=== PATIENT | female | born 1945 | race Caucasian/White ===

== ENCOUNTER 2017-09-10 12:42 | Day surgery (SDC) | payer MEDICARE ==
[2017-09-10] VITALS (300 sets, daily range): BP systolic 115–150; BP diastolic 75–101; PULSE 113–120; TEMP 97.7–98.8; O2SAT 82–100
[~2017-09-10] VITALS: Ht 152.4 cm; Wt 97.1 kg
[2017-09-10 13:43] LABS: HEMATOCRIT 40.8 % (37.0-47.0); HEMOGLOBIN 12.8 g/dl (12.5-16.0); MEAN CELL VOLUME 101 fl (80.0-100.0); MEAN CORPUSCULAR HEMOGLOBIN 32 pg (27.0-31.0); MEAN CORPUSCULAR HGB CONC 31 g/dl (33.0-37.0); MEAN PLATELET VOLUME 8.5 fl (7.4-10.4); PLATELET COUNT 290 K/mm3 (130-400); RED BLOOD COUNT 4.06 M/mm3 (4.10-5.30)
[2017-09-10] MEDS ORDERED: NITROSTAT0.4 MG/TAB SL (13:43)
[2017-09-10] MEDS ORDERED: GLUCOTROL 5M5 MG/TAB PO (13:43)
[2017-09-10] MEDS ORDERED: COZAAR 50MG50 MG/TAB PO (13:44)
[2017-09-10] MEDS ORDERED: LASIX 80MG TABL80 MG PO (13:44)
[2017-09-10] MEDS ORDERED: NORVASC 5MG5 MG/TAB PO (13:46)
[2017-09-10] MEDS ORDERED: K-TAB20 PO (13:47)
[2017-09-10] MEDS ORDERED: NORCO 325 MG-7.1 TAB PO (13:47)
[2017-09-10] MEDS ORDERED: MELATONIN5 M1 SL (13:48)
[2017-09-10] MEDS ORDERED: CALCIUM-MAGNES1 EAC1 PO (13:49)
[2017-09-10] MEDS ORDERED: TYLENOL 500MG500 MG PO (13:49)
[2017-09-10] MEDS ORDERED: THE MEDICINE S200 M2 PO (13:53)
[2017-09-10] MEDS ORDERED: MECLIZINE PO (13:55)
[2017-09-10] MEDS ORDERED: ASPIRIN 32325 MG/TAB PO (13:56)
[2017-09-10] MEDS ORDERED: VITAMIN B COMPL1 SGL PO (13:56)
[2017-09-10 13:57] LABS: CALCIUM 9.6 mg/dL (8.4-10.2); CREATININE, serum 1.06 mg/dL (0.52-1.25); POTASSIUM 4.4 mmol/L (3.4-5.0)
[2017-09-10] MEDS ORDERED: OYSTER SHELL CA1 TA6 PO (13:57)
[2017-09-10] MEDS ORDERED: GLUCOSAMIN 500 PO (13:57)
[2017-09-10] MEDS ORDERED: NATURE'S BLEND100 M2 PO (13:58)
[2017-09-10] MEDS ORDERED: B-121000 MCG PO (13:58)
[2017-09-10] MEDS ORDERED: VITAMIN C500 MG PO (13:59)
[2017-09-10] MEDS ORDERED: NATURAL E400 IU PO (13:59)
[2017-09-10 14:19] LABS: INR 1.1 (0.8-3.0); PROTHROMBIN TIME 12.6 SECONDS (9.7-12.8)
[2017-09-10] MEDS ORDERED: GLUCOPHAGE500 MG/TAB PO (14:55)
[2017-09-10 20:37] LABS: BASO # 0.1 (0.0-0.2); BASO % 1.3 % (0.0-2.0); EOS # 0.2 (0.0-0.7); GRAN # 2.9 (1.4-6.5); GRAN % 48.8 % (42.2-75.2); HEMATOCRIT 39.5 % (37.0-47.0); HEMOGLOBIN 12.4 g/dl (12.5-16.0); LYMPH # 2.1 (1.2-3.4); LYMPH % 34.3 % (20.0-51.0); MEAN CELL VOLUME 101 fl (80.0-100.0); MEAN CORPUSCULAR HEMOGLOBIN 32 pg (27.0-31.0); MEAN CORPUSCULAR HGB CONC 31 g/dl (33.0-37.0); MEAN PLATELET VOLUME 8.4 fl (7.4-10.4); MONO # 0.7 (0.1-0.6); MONO % 12.4 % (1.7-9.3); PLATELET COUNT 272 K/mm3 (130-400); RED BLOOD COUNT 3.92 M/mm3 (4.10-5.30); REDCELL DISTRIBUTION WIDTH-CV 14.2 % (11.5-14.5)
[2017-09-10 20:50] LABS: CALCIUM 9.4 mg/dL (8.4-10.2); CREATININE, serum 1.06 mg/dL (0.52-1.25); POTASSIUM 5.2 mmol/L (3.4-5.0)
[2017-09-11] VITALS (130 sets, daily range): BP systolic 123–149; BP diastolic 81–94; PULSE 115–130; TEMP 97.1–98; O2SAT 89–99
[2017-09-11 05:43] LABS: CALCIUM 9.1 mg/dL (8.4-10.2); CREATININE, serum 1.06 mg/dL (0.52-1.25); POTASSIUM 4.3 mmol/L (3.4-5.0)
[2017-09-11] MEDS ORDERED: PLAVIX 75MG TAB75 MG PO (08:15)
[2017-09-11] MEDS ORDERED: ASPI325T6 PO (08:16)
== END 2017-09-11 10:55 | disposition home or self-care (01) ==
LOC: COL.CAR 12:42 → ICU 17:52 → COL.CAR 09-11 10:55
PROVIDERS: Internal Medicine Interventional Cardiology
DX: I25.110 Atherosclerotic heart disease of native coronary artery with unstable angina pectoris (principal); I10 Essential (primary) hypertension; E11.9 Type 2 diabetes mellitus without complications; Z79.84 Long term (current) use of oral hypoglycemic drugs; E66.9 Obesity, unspecified; E78.5 Hyperlipidemia, unspecified; Z88.2 Allergy status to sulfonamides; Z88.8 Allergy status to other drugs, medicaments and biological substances
CPT/HCPCS: OP; C9600; C9601; J0583; Q9967

== ENCOUNTER 2017-09-22 13:07 | Inpatient (IN) | payer MEDICARE ==
[~2017-09-22] VITALS: Ht 152.4 cm; Wt 95.6 kg
[~2017-09-22 13:07] MED LIST: ANTIVERT 25MG25 MG PO; ASPI325T6 PO; ASPIRIN 32325 MG/TAB PO; B-121000 MCG PO; CALCIUM-MAGNES1 EAC1 PO; COZAAR 50MG50 MG/TAB PO; GLUCOPHAGE500 MG/TAB PO; GLUCOSAMIN 500 PO; GLUCOTROL 5M5 MG/TAB PO; K-TAB20 PO; LASIX 80MG TABL80 MG PO; MELATONIN5 M1 SL; NATURAL E400 IU PO; NATURE'S BLEND100 M2 PO; NITROSTAT0.4 MG/TAB SL; NORCO 325 MG-7.1 TAB PO; NORVASC 5MG5 MG/TAB PO; OYSTER SHELL CA1 TA6 PO; PLAVIX 75MG TAB75 MG PO; THE MEDICINE S200 M2 PO; TYLENOL 500MG500 MG PO; VITAMIN B COMPL1 SGL PO; VITAMIN C500 MG PO
[2017-09-22] MEDS ORDERED: ASPIRIN 81M81 MG/TA2 PO (18:06)
[2017-09-22 18:19] VITALS: BP 122/73; PULSE 116; TEMP 98
[2017-09-22 18:45] LABS: BASO # 0.1 (0.0-0.2); BASO % 1.6 % (0.0-2.0); EOS # 0.2 (0.0-0.7); GRAN # 4.3 (1.4-6.5); HEMATOCRIT 42.4 % (37.0-47.0); HEMOGLOBIN 13.6 g/dl (12.5-16.0); LYMPH # 2.1 (1.2-3.4); LYMPH % 27.6 % (20.0-51.0); MEAN CELL VOLUME 100 fl (80.0-100.0); MEAN CORPUSCULAR HEMOGLOBIN 32 pg (27.0-31.0); MEAN CORPUSCULAR HGB CONC 32 g/dl (33.0-37.0); MEAN PLATELET VOLUME 8.6 fl (7.4-10.4); MONO # 0.9 (0.1-0.6); MONO % 11.5 % (1.7-9.3); PLATELET COUNT 327 K/mm3 (130-400); RED BLOOD COUNT 4.24 M/mm3 (4.10-5.30); REDCELL DISTRIBUTION WIDTH-CV 14.4 % (11.5-14.5)
[2017-09-22 18:57] LABS: CALCIUM 9.9 mg/dL (8.4-10.2); CREATININE, serum 1.09 mg/dL (0.52-1.25); POTASSIUM 5.5 mmol/L (3.4-5.0)
[2017-09-22 19:15] LABS: TROPONIN-I 0.066 ng/mL (0.000-0.034)
[2017-09-22 19:26] VITALS: BP 110/75; PULSE 117; TEMP 98.9
[2017-09-22] MEDS ORDERED: NORCO 325 MG-7.1 TAB PO (19:34)
[2017-09-22 23:20] VITALS: BP 104/64; PULSE 113; TEMP 98.5
[2017-09-23] VITALS (577 sets, daily range): BP systolic 110–132; BP diastolic 57–86; PULSE 97–119; TEMP 97.6–98.5; O2SAT 86–98
[2017-09-23 07:54] LABS: BASO # 0.1 (0.0-0.2); BASO % 1.8 % (0.0-2.0); EOS # 0.2 (0.0-0.7); EOS % 2.7 % (0-4.0); GRAN # 2.5 (1.4-6.5); GRAN % 39.8 % (42.2-75.2); HEMATOCRIT 40.9 % (37.0-47.0); HEMOGLOBIN 12.8 g/dl (12.5-16.0); LYMPH # 2.5 (1.2-3.4); LYMPH % 40.6 % (20.0-51.0); MEAN CELL VOLUME 101 fl (80.0-100.0); MEAN CORPUSCULAR HEMOGLOBIN 32 pg (27.0-31.0); MEAN CORPUSCULAR HGB CONC 31 g/dl (33.0-37.0); MEAN PLATELET VOLUME 8.5 fl (7.4-10.4); MONO # 0.9 (0.1-0.6); MONO % 14.8 % (1.7-9.3); PLATELET COUNT 286 K/mm3 (130-400); RED BLOOD COUNT 4.05 M/mm3 (4.10-5.30); REDCELL DISTRIBUTION WIDTH-CV 14.5 % (11.5-14.5)
[2017-09-23 08:03] LABS: PROTHROMBIN TIME 12.1 SECONDS (9.7-12.8)
[2017-09-23 08:10] LABS: CALCIUM 9.4 mg/dL (8.4-10.2); CREATININE, serum 0.97 mg/dL (0.52-1.25); POTASSIUM 3.9 mmol/L (3.4-5.0)
[2017-09-23 08:28] LABS: TROPONIN-I 0.039 ng/mL (0.000-0.034)
[2017-09-23 08:36] LABS: PARTIAL THROMBOPLASTIN TIME 34.6 SECONDS (26.0-37.0)
[2017-09-24] VITALS (516 sets, daily range): BP systolic 134–146; BP diastolic 88–109; PULSE 108–110; TEMP 97–97.8; O2SAT 86–99
[2017-09-24] MEDS ORDERED: ELIQUIS 5MG PO (11:13)
[2017-09-24] MEDS ORDERED: PLAVIX 75MG TAB75 MG PO (11:13)
[2017-09-24] MEDS ORDERED: DUTOPROL 12.5 M1 TE2 PO (11:14)
== END 2017-09-24 13:13 | disposition home or self-care (01) | DRG 315 ==
LOC: MEDICAL 13:07 → ICU 09-23 14:20 → MEDICAL 09-23 17:00 → ICU 09-24 13:13
PROVIDERS: Internal Medicine Interventional Cardiology
PROC: 5A2204Z Restoration of Cardiac Rhythm, Single (ICD-10-PCS; principal; 2017-09-23)
DX: I42.0 Dilated cardiomyopathy (principal); I25.110 Atherosclerotic heart disease of native coronary artery with unstable angina pectoris; I48.92 Unspecified atrial flutter; I48.0 Paroxysmal atrial fibrillation; Z87.891 Personal history of nicotine dependence
CPT/HCPCS: J0282; J1650; J2250; J3010; J7060

== ENCOUNTER 2017-11-09 12:17 | Day surgery (SDC) | payer MEDICARE ==
[~2017-11-09] VITALS: Ht 152.4 cm; Wt 94.9 kg
[2017-11-09] VITALS (308 sets, daily range): BP systolic 127–159; BP diastolic 69–89; PULSE 61–77; TEMP 97.1–98.8; O2SAT 70–100
[~2017-11-09 12:17] MED LIST changes: +ASPIRIN 81M81 MG/TA2 PO; +DUTOPROL 12.5 M1 TE2 PO; +ELIQUIS 5MG PO
[2017-11-09 13:09] LABS: HEMATOCRIT 42.6 % (37.0-47.0); HEMOGLOBIN 13.9 g/dl (12.5-16.0); MEAN CELL VOLUME 96 fl (80.0-100.0); MEAN CORPUSCULAR HEMOGLOBIN 31 pg (27.0-31.0); MEAN CORPUSCULAR HGB CONC 33 g/dl (33.0-37.0); MEAN PLATELET VOLUME 8.6 fl (7.4-10.4); PLATELET COUNT 246 K/mm3 (130-400); RED BLOOD COUNT 4.45 M/mm3 (4.10-5.30); REDCELL DISTRIBUTION WIDTH-CV 14.9 % (11.5-14.5)
[2017-11-09 13:16] LABS: PROTHROMBIN TIME 11.6 SECONDS (9.7-12.8)
[2017-11-09 13:23] LABS: CALCIUM 9.4 mg/dL (8.4-10.2); CREATININE, serum 1.09 mg/dL (0.52-1.25); POTASSIUM 4.8 mmol/L (3.4-5.0)
[2017-11-09] MEDS ORDERED: CORDARONE200 MG/TAB PO (13:29)
[2017-11-10] VITALS (504 sets, daily range): BP systolic 117–162; BP diastolic 74–87; PULSE 70–72; TEMP 97.2–98.5; O2SAT 48–100
[2017-11-10 05:42] LABS: BASO # 0.1 (0.0-0.2); EOS # 0.1 (0.0-0.7); EOS % 2.1 % (0-4.0); GRAN # 2.9 (1.4-6.5); HEMATOCRIT 42.2 % (37.0-47.0); HEMOGLOBIN 13.3 g/dl (12.5-16.0); LYMPH # 2.2 (1.2-3.4); LYMPH % 36.7 % (20.0-51.0); MEAN CELL VOLUME 98 fl (80.0-100.0); MEAN CORPUSCULAR HEMOGLOBIN 31 pg (27.0-31.0); MEAN CORPUSCULAR HGB CONC 32 g/dl (33.0-37.0); MEAN PLATELET VOLUME 8.5 fl (7.4-10.4); MONO # 0.8 (0.1-0.6); PLATELET COUNT 240 K/mm3 (130-400); RED BLOOD COUNT 4.29 M/mm3 (4.10-5.30)
[2017-11-10 05:53] LABS: CALCIUM 8.8 mg/dL (8.4-10.2); CREATININE, serum 1.19 mg/dL (0.52-1.25); POTASSIUM 4.1 mmol/L (3.4-5.0)
== END 2017-11-10 12:39 | disposition home or self-care (01) ==
LOC: COL.CAR 12:17 → ICU 15:15 → COL.CAR 11-10 12:39
PROVIDERS: Internal Medicine Interventional Cardiology
DX: I25.10 Atherosclerotic heart disease of native coronary artery without angina pectoris (principal); I48.0 Paroxysmal atrial fibrillation; I83.93 Asymptomatic varicose veins of bilateral lower extremities; I25.5 Ischemic cardiomyopathy; Z95.811 Presence of heart assist device; Z79.02 Long term (current) use of antithrombotics/antiplatelets; Z79.82 Long term (current) use of aspirin; Z88.5 Allergy status to narcotic agent; E11.9 Type 2 diabetes mellitus without complications; Z79.84 Long term (current) use of oral hypoglycemic drugs; E78.5 Hyperlipidemia, unspecified; Z95.5 Presence of coronary angioplasty implant and graft; I34.0 Nonrheumatic mitral (valve) insufficiency
CPT/HCPCS: OP; C9600; J0583; J1940; J2250; J3010; Q9967

== ENCOUNTER 2018-05-17 10:38 | Inpatient (IN) | payer MEDICARE ==
[~2018-05-17] VITALS: Ht 154.9 cm; Wt 97.2 kg
[~2018-05-17 10:38] MED LIST changes: +CORDARONE200 MG/TAB PO
[2018-06-27] VITALS (10 sets, daily range): BP systolic 97–154; BP diastolic 69–98; PULSE 58–80; TEMP 97.6–98.2
[2018-06-27] MEDS ORDERED: LEXAPRO20 MG PO (08:57)
[2018-06-27] MEDS ORDERED: GLUCOTROL 5M5 MG/TAB PO (08:58)
[2018-06-27] MEDS ORDERED: PROTONIX 40MG T40 MG PO (08:59)
[2018-06-27] MEDS ORDERED: GLUCOPHAGE500 MG/TAB PO (08:59)
[2018-06-27] MEDS ORDERED: VITAMIN E 400 U4001 PO (09:00)
[2018-06-27] MEDS ORDERED: K-DUR20 MEQ PO (09:00)
[2018-06-28 01:03] VITALS: BP 128/63; PULSE 88; TEMP 98.3
[2018-06-28 04:50] VITALS: BP 134/75; PULSE 86; TEMP 98.6
[2018-06-28] MEDS ORDERED: CELEBREX 200MG200 MG PO (06:37)
[2018-06-28] MEDS ORDERED: NORCO 325 MG-7.1 TAB PO (06:37)
[2018-06-28] MEDS ORDERED: ULTRAM 50MG TAB50 MG PO (06:38)
[2018-06-28 06:43] LABS: HEMOGLOBIN 11.3 g/dl (12.5-16.0)
[2018-06-28 08:00] VITALS: BP 151/72; PULSE 100; TEMP 97.8
[2018-06-28 11:22] VITALS: BP 148/76; PULSE 100; TEMP 99.3
[2018-06-28 20:44] VITALS: BP 156/72; PULSE 107; TEMP 98.5
[2018-06-29 01:35] VITALS: BP 131/72; PULSE 110; TEMP 98.5
[2018-06-29 06:01] VITALS: BP 146/77; PULSE 102; TEMP 97.7
[2018-06-29 07:31] LABS: HEMOGLOBIN 10.4 g/dl (12.5-16.0)
[2018-06-29 07:37] VITALS: BP 138/70; PULSE 100; TEMP 98.3
[2018-06-29 11:32] VITALS: BP 137/69; PULSE 115; TEMP 98.9
[2018-06-29] MEDS ORDERED: GLUCOPHAGE500 MG/TAB PO ×2 (14:05)
[2018-06-29 16:31] VITALS: BP 148/72; PULSE 99; TEMP 98.2
[2018-06-29 21:14] VITALS: BP 123/61; PULSE 99; TEMP 98.6
[2018-06-30 02:13] VITALS: BP 120/69; PULSE 84; TEMP 98.6
[2018-06-30 08:09] VITALS: BP 148/83; PULSE 102; TEMP 98.3
[2018-06-30 09:09] VITALS: BP 148/83; PULSE 102; TEMP 98.3
== END 2018-06-30 10:00 | disposition swing bed (61) | DRG 470 ==
LOC: JCC 06-27 07:30
PROVIDERS: Orthopaedic Surgery; Physician Assistant
PROC: 0SRD0J9 Replacement of Left Knee Joint with Synthetic Substitute, Cemented, Open Approach (ICD-10-PCS; principal; 2018-06-27 09:30)
DX: M17.12 Unilateral primary osteoarthritis, left knee (principal); I48.91 Unspecified atrial fibrillation; E11.9 Type 2 diabetes mellitus without complications; I25.10 Atherosclerotic heart disease of native coronary artery without angina pectoris; I11.0 Hypertensive heart disease with heart failure; I50.9 Heart failure, unspecified; Z87.891 Personal history of nicotine dependence; Z95.5 Presence of coronary angioplasty implant and graft
CPT/HCPCS: A4314; C1713; C1776; J0690; J1885; J2250; J2405; J2704; J2795; J3010; J7030

== ENCOUNTER → 2018-07-25 | Outpatient (CLI) | payer MEDICARE ==
[~2018-07-25] MED LIST changes: +CELEBREX 200MG200 MG PO; +K-DUR20 MEQ PO; +LEXAPRO20 MG PO; +PROTONIX 40MG T40 MG PO; +ULTRAM 50MG TAB50 MG PO; +VITAMIN E 400 U4001 PO
== END ==
LOC: COL.VAS 13:30
DX: I82.812 Embolism and thrombosis of superficial veins of left lower extremity (principal); Z98.890 Other specified postprocedural states; Z96.652 Presence of left artificial knee joint

== ENCOUNTER 2023-04-09 06:18 | Day surgery (SDC) | payer MEDICARE ==
[~2023-04-09] VITALS: Ht 154.9 cm; Wt 93.6 kg
[~2023-04-09 06:18] MED LIST changes: +ALDACTONE 25MG25 M1 PO; +AMOXICILLIN 8751 TAB PO; +BETAPACE AF80 MG/TA1 PO; -CALCIUM-MAGNES1 EAC1 PO; +CHOLESTYRAMINE PO; +COLACE 100100 MG/CAP PO; +CYMBALTA 30MG30 MG PO; +FENTANYL 50MCG TD; +GLUCOPHAGE1000 MG PO; +HEADACHE RELIE1 EACH PO; +IMDUR 60MG60 MG/TAB PO; +JARDIANCE10; +LASIX 20MG TABL20 MG PO; +MELATONIN ER10 MG PO; -MELATONIN5 M1 SL; +MULTI VITAMINS1 TAB PO; +NEURIVA PLUS B1 EACH PO; +OYSCO 500 + D 51 TAB PO; +SENNA-LAX8.6 MG PO
[2023-04-09 07:31] VITALS: BP 133/59; PULSE 93; TEMP 98.3
[2023-04-09 09:27] VITALS: BP 91/47; PULSE 84; TEMP 98.2
[2023-04-09 09:45] VITALS: BP 104/58; PULSE 80
[2023-04-09 10:00] VITALS: BP 110/60; PULSE 70
[2023-04-09 10:15] VITALS: BP 117/65; PULSE 68
[2023-04-09] MEDS ORDERED: CEPHALEXIN500 M1 PO (10:31)
--- NOTE | 2023-04-09 17:21 | NUR ---
3240-1136: PT TO RECOVERY BAY 6 FROM OR S/P HARDWARE REMOVAL FROM LEFT FOREARM SLEEPING, PLACED ON MONITOR, VSS ON 6L MASK RECEIVED REPORT AND ASSUMED CARE OF PT FROM YANNA AND GOSIA FAMILY AT BEDSIDE PT A&O AT 0950 - PLACED ON RA PROVIDED FOOD/FLUIDS, TOLERATING WELL T/C TO PA FOR DC ORDERS AT 1010 PT HAS REMAINED A&O, NAD, VSS ON RA, TOLERATING PO, IS WITHOUT SIGNIFICANT COMPLAINT, WITH STEADY GAIT TO BR TO VOID BY END OF STAY IV D/C'D. D/C INSTRUCTIONS, ANY FOLLOW UP REVIEWED AND HANDED TO PT. ALL QUESTIONS AND CONCERNS ADDRESSED TO PT SATISFACTION. TAKEN TO EXIT VIA W/C WITH ALL BELONGINGS AND PAPERWORK IN HAND, ASSISTED INTO PASSENGER SEAT OF POV. FAMILY TO DRIVE HOME.
== END 2023-04-09 10:50 | disposition home or self-care (01) ==
LOC: SDCO 06:18
DX: S52.502D Unspecified fracture of the lower end of left radius, subsequent encounter for closed fracture with routine healing (principal); E11.9 Type 2 diabetes mellitus without complications; Z79.84 Long term (current) use of oral hypoglycemic drugs
CPT/HCPCS: J2704; J7030